=== PATIENT | male | born 1955 | race Caucasian/White ===

== ENCOUNTER → 2021-09-16 11:27 | Outpatient (CLI) | payer MEDICARE, SELFPAY ==
--- NOTE | ~2021-09-16 | US_ITS ---
EXAMINATION: US soft tissue head and neck DATE: 09/16/2021 11:47 INDICATION: Localized swelling, mass or lump at the right neck. TECHNIQUE: Multiple grayscale and Doppler ultrasound images of the region of concern at the right nec k were obtained. COMPARISON: None FINDINGS: There is a 3.7 x 2.2 x 3.1 cm complex predominantly solid hypoechoic mass at the region of concern. T here is an anechoic cystic region along one side of the mass. Internal vascular flow is evident withi n the solid component of the mass on color Doppler. 2 passes located along the right common carotid a rtery and internal jugular vein suggesting an enlarged lymph node. There are few additional smaller n ormal sized right internal jugular chain lymph nodes measuring up to 7 mm in maximal short axis diame ter. IMPRESSION: 1. 3.7 x 2.2 x 3.1 cm complex predominantly solid mass along the right internal jugular chain suspici ous for metastatic disease. Recommend ultrasound-guided core needle biopsy. The partially cystic natu re of the mass in the history of prior smoking raises concern for a head and neck squamous cell carci noma and would also recommend further evaluation with contrast-enhanced CT of the neck. Reviewed, dictated and finalized at location [facility]. IMPRESSION: 1. 3.7 x 2.2 x 3.1 cm complex predominantly solid mass along the right internal jugular chain suspicious for metastatic disease. Recommend ultrasound-guided c ore needle biopsy. The partially cystic nature of the mass in the history of pr ior smoking raises concern for a head and neck squamous cell carcinoma and woul d also recommend further evaluation with contrast-enhanced CT of the neck.
== END ==
PROVIDERS: PCP Family Medicine Adolescent Medicine; Visit Provider Physician Assistant
DX: R22.1 Localized swelling, mass and lump, neck (principal)
CPT/HCPCS: 76536

== ENCOUNTER → 2021-09-19 12:56 | Outpatient (CLI) | payer MEDICARE, SELFPAY ==
--- NOTE | ~2021-09-19 | US_ITS ---
US scrotum doppler INDICATION: Right testicular swelling TECHNIQUE: Testicular sonogram utilizing grayscale and color Doppler FINDINGS: The testes are normal in size and appearance. No focal lesions are seen. The right testes measures 5.4 x 2.5 x 3.7 cm centimeters, and the left testis measures 5 x 2.1 x 2.8 cm cm. There is a large septated right epididymal cyst measuring 8.6 x 4.2 x 6.5 cm. There is a left epididymal cyst m easuring 1.4 x 1.3 x 0.6 cm. There is no varicocele or hydrocele. IMPRESSION: 1. Bilateral epididymal cysts, largest being septated in the right epididymis measuring 8.6 cm maxim um dimension. Reviewed, dictated and finalized at location A. IMPRESSION: 1. Bilateral epididymal cysts, largest being septated in the right epididymis measuring 8.6 cm maximum dimension.
== END ==
PROVIDERS: PCP Family Medicine Adolescent Medicine; Visit Provider Physician Assistant
DX: N50.89 Other specified disorders of the male genital organs (principal); N50.3 Cyst of epididymis
CPT/HCPCS: 76870; 93976

== ENCOUNTER 2021-09-26 12:34 | Outpatient (CLI) | payer MEDICARE, SELFPAY ==
--- NOTE | ~2021-09-26 | CT_ITS ---
EXAMINATION: CT soft tissue neck wo con DATE: 09/26/2021 13:06 INDICATION: Right neck mass. TECHNIQUE: Computed tomography (CT) of the neck was performed without intravenous contrast. Automated exposure control and iterative reconstruction technique were employed. The dose-length product was 4 15.30 mGy-cm. COMPARISON: Ultrasound 09/16/2021 FINDINGS: There is mild emphysema. There is a 3.3 x 2.3 cm high right internal jugular chain lymph no de. There is plate and screw fixation of some of the facial bones bilaterally. There is severe cervic al spondylosis. IMPRESSION: 1. Enlarged high right internal jugular chain lymph node suspicious for metastatic squamous cell carc inoma or lymphoma. Correlate with results from today's biopsy. Reviewed, dictated and finalized at location A. IMPRESSION: 1. Enlarged high right internal jugular chain lymph node suspicious for metasta tic squamous cell carcinoma or lymphoma. Correlate with results from today's bi opsy.
--- NOTE | ~2021-09-26 | US_ITS ---
EXAMINATION: US biopsy st neck thorax DATE: 09/26/2021 13:50 INDICATION: Right neck mass. TECHNIQUE: The procedure including the risks, benefits, and alternatives was discussed with the patie nt. Risks discussed included bleeding and infection. The patient understood the risks and agreed to p roceed. The skin overlying the right neck was prepped and draped in usual sterile fashion. Anestheti c was administered with 1% lidocaine subcutaneously. An 18 gauge core biopsy needle was then used to obtain 6 core biopsy specimens under continuous sonographic guidance. The entry site was cleaned and dressed. There were no immediate complications. FINDINGS: Ultrasound images demonstrate the needle in a 3.4 x 3.3 x 1.9 cm high right internal jugula r chain lymph node. IMPRESSION: 1. Ultrasound-guided core needle biopsy of an enlarged high right internal jugular chain lymph node. Reviewed, dictated and finalized at location A. IMPRESSION: 1. Ultrasound-guided core needle biopsy of an enlarged high right internal jugu lar chain lymph node.
== END 2021-09-26 12:35 | disposition home or self-care (01) ==
PROVIDERS: PCP Family Medicine Adolescent Medicine; Visit Provider Physician Assistant
DX: C80.1 Malignant (primary) neoplasm, unspecified (principal); C77.0 Secondary and unspecified malignant neoplasm of lymph nodes of head, face and neck
CPT/HCPCS: 20206; 70490; 76942; 88184; 88185; 88305; 88342

== ENCOUNTER 2021-11-03 08:41 | Emergency (ER) | payer MEDICARE, SELFPAY ==
--- NOTE | ~2021-11-03 | CT_ITS ---
EXAMINATION: CTA LE RT DATE: 11/03/2021 10:56 INDICATION: Pain and absent pulses in the right lower leg. TECHNIQUE: Computed tomographic angiography (CTA) of the abdominal, pelvis, and both lower extremitie s was performed with 150 mL Omnipaque 350 intravenous contrast. Automated exposure control and iterat bogdan reconstruction technique were employed. The dose-length product was 860.63 mGy-cm. COMPARISON: None. FINDINGS: ABDOMINAL AORTA AND ITS BRANCHES: There is calcified atherosclerosis of the normal caliber abdominal aorta and many of the other arteri es. Moderate (50-70%) stenosis at the origin of the celiac axis. No significant stenosis of the super ior mesenteric, inferior mesenteric or bilateral renal arteries. 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 PELVIC VASCULATURE: Multifocal mild (<50%) stenosis along the bilateral common iliac arteries. Mild and moderate stenosis along the left external iliac artery. Moderate and severe (>70%) stenosis along the bilateral statistics intern al iliac arteries. There is a 6.5 cm segmental occlusion of the right external iliac artery with taryn ateral resupply via the right superficial circumflex iliac and inferior epigastric arteries. RIGHT LOWER EXTREMITY: Mild stenosis along the right common femoral artery. Mild stenosis at the proximal profunda (deep) fe moral artery. Multifocal moderate to severe stenosis along the right superficial femoral artery. Ther e is a 4.5 cm segmental occlusion at the junction of the femoral and proximal popliteal arteries with the supplied via collaterals. Mild stenosis along the more distal popliteal artery. The right anteri or cerebral artery is atretic and occludes 19 cm below level of the knee joint line. Mild to moderate multifocal stenosis along the tibioperoneal trunk. There is occlusion near the origin of the right p osterior tibial artery. Mild stenosis along the right peroneal artery with runoff below the ankle. Th ere is some faint contrast seen in the cord as in the atelectatic distal right vertebral artery. Ther e is supplied by collaterals a few centimeters above level of the ankle. LEFT LOWER EXTREMITY: Moderate stenosis on the left common femoral artery. Mild stenosis at the proximal profunda (deep) fe moral artery. And multifocal mild stenosis on the left femoral artery. Moderate stenosis at the junct ion of the femoral and proximal popliteal arteries. Additional mild stenosis at the mid popliteal art faina. The mid to distal left anterior tibial artery is atretic with faintly discernible contrast which extend below the ankle to supply the dorsalis pedis artery. Mild stenosis along the tibioperoneal tr unk. No significant stenosis on the left peroneal artery with runoff below the ankle. The posterior t ibial artery is atretic with the additional contrast was seen for a short distance proximally before occluding. There is antegrade. Faint contrast where it is seen beginning near the level of the ankle via response from the peroneal artery ADDITIONAL FINDINGS: Mild lingular atelectasis. Heart size is normal. No pericardial or pleural effusion. Small sliding-ty pe hiatal hernia. Liver, gallbladder, spleen, pancreas, bilateral adrenal glands and kidneys are norm al. Moderate scattered colonic diverticulosis without adjacent inflammatory change to suggest diverti culitis. Small bowel and appendix are normal. Mild prostatomegaly. Bilateral small fat-containing ing uinal hernias. No free intraperitoneal gas or fluid. No pathologically enlarged abdominal, pelvic or inguinal lymphadenopathy. Mild to moderate lumbar and lower thoracic spondylosis. IMPRESSION: 1. Extensive atherosclerotic disease involving the abdominal aorta and its main branches and extendi ng throughout both lower extremities. Segmental occlusions are seen in the right external iliac arter y at the junction
[2021-11-03 09:00] VITALS: BP 146/88; PULSE 65; RESP 18; TEMP 36.8; O2SAT 98
--- NOTE | 2021-11-03 09:28 | ED.GENADULT ---
HPI - General Adult General Chief complaint: Wound/Laceration Stated complaint: int RLE pain/numbness since july 2020 Time Seen by Provider: 11/03/21 09:08 History of Present Illness HPI narrative: 66-year-old male presents emergency room states he woke up with numbness and pain to his right lower extremity essentially from his knee down to his foot. He states his right lower extremity also feels cold. Patient does have a history of atherosclerosis and was put on a statin but could not tolerate and stopped taking them. He was a prior smoker but he quit smoking in April of this year. 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 He had a history of some low back issues and sciatica but not having those issues at this time. Related Data Home Medications Medication Instructions Recorded Confirmed No Home Medications 10/17/21 10/17/21 Allergies Allergy/AdvReac Type Severity Reaction Status Date / Time No Known Allergies Allergy Verified 11/03/21 09:30 Review of Systems Review of Systems: CONSTITUTIONAL: Denies fever, chills, or sweats. EYES: Denies visual changes, redness, or discharge. ENT: Denies rhinorrhea, congestion, sore throat, or otalgia. CARDIOVASCULAR: Denies chest pain, palpitations, or edema. RESPIRATORY: Denies cough or dyspnea. GASTROINTESTINAL: Denies abdominal pain, nausea, vomiting, or diarrhea. GENITOURINARY: Denies dysuria or hematuria. SKIN: Denies rash or itching. MUSCULOSKELETAL: Pain to the right leg from the knee down to the foot and toes. Denies any back pain at this time. NEUROLOGIC: Denies headache, numbness, or weakness. PSYCHIATRIC: Denies anxiety or depression. [facility] Past Medical History Medical History Hypercholesterolemia Sciatica Squamous cell cancer of hypopharynx Surgical History Surgical History History of facial surgery Family History Family History Father Heart disease Parkinson disease Mother Leukemia Pacemaker Diabetes mellitus Heart disease Grandparent Heart disease Ovarian cancer Cerebrovascular accident Social History Social History Years smoked: 50 Smoking status: Former smoker Second hand tobacco smoke exposure: No Smoking end date: 04/27/21 Alcohol intake: current Drinks per week: 18 Substance use: never Substance use type: does not use Gender identity (if verbalized by the patient): Male Sexual Orientation (if Verbalized by the Patient): Straight or Heterosexual Spiritual care concerns: No Agree to blood products: Yes Exam Narrative: APPEARANCE: Well appearing, no pain or distress, well-nourished. Head normocephalic and atraumatic. EYES: PERRLA/EOMI, conjunctivae very clear. NOSE: Normal with no drainage EARS:TMS clear Marcela Booth, with good light reflex. THROAT: Pharynx clear, no exudate. NECK: Supple. Noted to have a mass to the right anterior portion of his neck. RESPIRATORY: Airway patent, respirations nonlabored. Clear to auscultation bilaterally, no rales, rhonchi, wheezing. CARDIOVASCULAR: Regular rate and rhythm without murmurs, rubs, or gallops. ABDOMINAL: Soft, nontender, nondistended, no hepatosplenomegaly Musculoskeletal: Moves all extremities. Strength/ROM intact, No edema, No calf tenderness. His right lower extremity is cool to touch from the knee down to the toes. He had decreased capillary refill to his toes. Unable to palpate a dorsalis pedis posterior tibial pulse on the right. Also unable to hear any Doppler pulses. NEURO: Alert. Cranial nerves II through XII intact. Normal gait. Good coordination. Nonfocal examination. SKIN:: Warm, dry. Normal Color PSYCHIATRIC: Normal affect/mood, normal interaction Course Vital Signs
[2021-11-03 09:46] LABS: Basophils Percent Auto 0.4 % (0.2-1.2); Eosinophils Absolute Auto 0.1 K/mm3 (0-0.3); Eosinophils Percent Auto 1.5 % (0-4.4); Hematocrit 42.1 % (42.0-52.0); Immature Granulocyte Absolute 0.01 K/mm3 (0.00-0.031); Immature Granulocyte Percent A 0.1 % (0-0.5); Lymphocytes Absolute Auto 1.93 K/mm3 (0.9-3.2); Lymphocytes Percent Auto 26.6 % (18.3-44.2); Mean Corpuscular HGB Conc 33.3 g/dl (32-36); Mean Corpuscular Volume 93.3 fl (80-100); Mean Platelet Volume 10.5 fl (7.4-10.4); Monocytes Absolute Auto 0.9 K/mm3 (0.1-0.6); Monocytes Percent Auto 12.3 % (2.6-8.5); Neutrophils Absolute Auto 4.3 K/mm3 (1.3-6.7); Neutrophils Percent Auto 59.1 % (45.5-73.1); Platelet Count Result 183 k/mm3 (150-375); Red Blood Count 4.51 M/mm3 (4.6-6.20); Red Cell Distribution Width 13.7 % (11.5-14.5); White Blood Count 7.3 K/mm3 (4.5-10.0)
[2021-11-03 09:56] LABS: Prothrombin Time 13.1 Seconds (11.1-14.7)
[2021-11-03 09:57] LABS: Alanine Aminotransferase 15 U/L (6-50); Albumin Level 4.9 g/dL (3.5-5.1); Alkaline Phosphatase 60 U/L (38-126); Anion Gap 7 mmol/L (8-16); Aspartate Amino Transferase 37 U/L (17-59); Bilirubin,Total 1.2 mg/dL (0.2-1.3); Blood Urea Nitrogen 13 mg/dL (9-20); Calcium 9.1 mg/dL (8.4-10.2); Carbon Dioxide 27 mmol/L (22-30); Chloride 105 mmol/L (98-107); Estimated CRCL calculation 83 ml/min; Estimated Glomerular Filt Rate > 60; Glucose 113 mg/dL (65-110); Partial Thromboplastin Time 29.4 SECONDS (22.3-36.8); Potassium 4.2 mmol/L (3.4-5.0); Sodium 139 mmol/L (137-145)
[2021-11-03 11:02] VITALS: BP 142/67; PULSE 70; RESP 18; O2SAT 98
[2021-11-03 13:23] VITALS: BP 160/83; PULSE 68; RESP 18; O2SAT 98
== END 2021-11-03 13:25 | disposition home or self-care (01) ==
PROVIDERS: Emergency Provider Emergency Medicine; PCP Family Medicine Adolescent Medicine
DX: I70.223 Atherosclerosis of native arteries of extremities with rest pain, bilateral legs (principal); I70.0 Atherosclerosis of aorta; C13.9 Malignant neoplasm of hypopharynx, unspecified; E78.00 Pure hypercholesterolemia, unspecified; Z87.891 Personal history of nicotine dependence
CPT/HCPCS: 36415; 73706; 80053; 85025; 85610; 85730; 99284; Q9967

== ENCOUNTER 2022-06-19 11:00 | Outpatient (RCR) | payer MEDICARE, SELFPAY ==
--- NOTE | 2022-04-10 15:54 | PTOPEVAL1 ---
Assessment and note entered by Ngoc Castro, PT Evaluation Information Assessment Status Evaluation Diagnosis lymphedema of head and neck Onset Feb 2022 Subjective Information no swelling after surgery, onset few weeks ago after radiation; since surgeries and treatment, have regained his endurance and activity level to about normal; Reported Pain Level Pain Score Self Report Additional Pain Score Comments pain in throat--sore, 2-3/10; mostly on the R side of throat/neck; depends on type of food he eats; Assessment PT Clinical Summary Alex has the diagnosis of lymphedema of head and neck, s/p cancer removal of R neck and tonsils, with 31 radiation treatments. He reports onset of swelling about 3 weeks ago. With the evaluation, he has good motion of his neck and mouth and does not report any issues with swallowing, other than throat sore, sometimes more when eat harder foods. There is visible edema over anterior neck and to the R below his scar, with adhesions of scar. Skilled PT services are indicated for lymphedema treatment--manual lymph drainage, manual therapy over scar, education to pt for self manual lymph drainage, appropriate compression garment, home pump, skin care. Plan of Care Interventions Intermittent Compression,Manual Lymph Drainage, Manual Therapy,Patient/Caregiver Education PT Services Indicated Yes Treatment Frequency and 0-2x/wk for 6 weeks, due to availability of the Duration therapist, treatment may not begin for few weeks These treatments will address the objective and functional deficits as defined above. The patient will be advanced safely and appropriately in order for the patient to progress towards his/her prior level of function. Additional exercises will be introduced and as well as a comprehensive home exercise program upon discharge, if needed, ?to ensure carryover of functional gains achieved in the clinic. This treatment plan has been reviewed and agreement upon by the patient.
--- NOTE | 2022-05-22 15:09 | PTOPPROG ---
Assessment and note entered by Ngoc Castro, PT, CLT Evaluation Information Assessment Status Progress Diagnosis lymphedema of head and neck Onset Feb 2022 Subjective Information Alex reports: has not really tried the compression garment, not quite figured it out yet; has been doing the self massage; does not want to try the home pump--use the garment and see how that does; no problems with sore throat or eating; does have some dryness of his mouth in the morning; is doing his neck stretches at home, no pain but feels tight in his neck; Education with pt: use of humidifier in his bed room with sleeping and use of thick coat of vaseline over lips; applied and adjusted the Solaris swell spot chin pad; educated pt on don/ doffing, he was able to perform, looking into the mirror to tighten the straps; good fit and support to his chin; discussed increase wearing time as able--few hours in the evening/ during day and if can tolerate--sleep with it on; also discussed sleeping on wedge cushion to elevate his head; Assessment PT Clinical Summary Alex has received a total of 8 PT sessions. Compared to the initial evaluation: improved with no longer has a sore throat; had been educated on compression garment--just received and not started using yet; education for self lymph massage drainage and exercises; fibrotic tissue at anterior neck has decreased in measurement: vertical by 3.5 cm and horizontal by 3 cm; neck circumferential measurements have decreased with 1 and other 2 are the same. Goals were partially achieved. Continue PT to further reduce the fibrotic tissue over anterior neck and lateral scar, assess how he does with the home compression garment. Plan of Care Interventions Intermittent Compression,Manual Lymph Drainage, Therapeutic Activities,Therapeutic Exercise PT Services Indicated Yes Treatment Frequency and 1x/wk for 4 weeks Duration These treatments will address the objective and functional deficits as defined above. The patient will be advanced safely and appropriately in order for the patient to progress towards his/her prior level of function. Additional exercises will be introduced and as well as a comprehensive home exercise program upon discharge, if needed, ?to ensure carryover of functional gains achieved in the clinic. This treatment plan has been
--- NOTE | 2022-06-19 11:30 | PTOPDC ---
Assessment and note entered by Ngoc Castro, PT, CLT Evaluation Information Assessment Status Discharge Diagnosis lymphedema of head and neck Onset Feb 2022 Subjective Information Alex reports: is wearing the compression head garment for 2 hours and the bump on his neck is totally gone, have not been sleeping with it on; is sleeping with his head elevated; been doing the lymph massage; no problems with swallowing and eating; scar is looser, does not pull as much with turning my head; therapy has really helped; ready for finishing therapy; Reported Pain Level Pain Score 0: Self Report Assessment PT Clinical Summary Alex has received 12 PT sessions. Compared to the last reevaluation: decreased fibrotic tissue over anterior neck and R lateral neck scar; cervical rotation to R and L is 60', with slight pull with rotation to L; circumferential measurements of neck: 1 same, 1 increased .5 cm and 1 increased 1 cm. Education completed for self care and pt is using the compression garment. Goals were partially met. Discharge PT services. Plan of Care PT Services Indicated No
== END 2022-06-20 09:46 | disposition home or self-care (01) ==
LOC: ANHPT 11:00
PROVIDERS: Visit Provider Radiology Radiation Oncology
DX: I89.0 Lymphedema, not elsewhere classified (principal)
CPT/HCPCS: 97110; 97140; 97161

== ENCOUNTER 2022-10-27 20:48 | Emergency (ER) | payer MEDICARE, SELFPAY ==
--- NOTE | ~2022-10-27 | CT_ITS ---
EXAMINATION: CT brain wo con DATE: 10/27/2022 21:32 INDICATION: Left arm numbness. Lightheadedness. TECHNIQUE: Computed tomography (CT) of the head was performed without intravenous contrast. The mA wa s adjusted according to patient size. Iterative reconstruction technique was employed. Exam dose: 60 5.33 mGy-cm total exam DLP. COMPARISON: None FINDINGS: Bilateral carotid siphon internal carotid artery calcifications. Bilateral vertebral artery and basilar artery calcification. There is nonspecific diminished attenuation of the cerebral white matter, likely due to chronic small vessel ischemic changes. No intracranial mass lesion or hemorrhage or cerebrovascular accident is detected. No midline shift o r mass effect. No subdural or epidural hematoma. Plate and screws are noted in the right facial bones. No recent skull fracture or bone destruction. The mastoid air cells and included paranasal sinuses are well-developed and aerated. IMPRESSION: Cerebral atherosclerosis and chronic small vessel ischemic changes of the cerebral white matter No acute intracranial finding Reviewed, dictated and finalized at [facility]. Reviewed, dictated and finalized at location A.
[2022-10-27 20:56] VITALS: BP 177/66; PULSE 86; RESP 16; TEMP 36.7; O2SAT 100
[2022-10-27 23:11] VITALS: BP 136/78; PULSE 82; RESP 18; O2SAT 100
--- NOTE | 2022-10-28 00:29 | ED.GENADULT ---
HPI - General Adult General Chief complaint: Dizziness Stated complaint: L arm numbness, dizziness Time Seen by Provider: 10/27/22 23:31 History of Present Illness HPI narrative: this is a 67-year-old male presenting ED with chief complaint of lightheadedness. Patient states he has been out working in the heat for the last 2 days. Earlier today while he was working he has developed a brief episode of lightheadedness. It resolved after he sat down and rested. Then several hours later he developed some paresthesias in his left arm. Those also resolved. Patient has a history of neuropathy in his feet but has never experienced that his hands before. He denies any neurologic symptoms such as double vision, dysarthria dysphagia dystaxia or weakness. Patient is currently asymptomatic and would like to go home. Related Data Home Medications Medication Instructions Recorded Confirmed aspirin 81 mg tablet,delayed 81 mg PO DAILY 12/16/21 03/17/22 release Allergies Allergy/AdvReac Type Severity Reaction Status Date / Time No Known Allergies Allergy Verified 03/17/22 09:32 [facility] Past Medical History Medical History Hypercholesterolemia Sciatica Surgical History Surgical History History of facial surgery Family History Family History Father Heart disease Parkinson disease Mother Leukemia Pacemaker Diabetes mellitus Heart disease Grandparent Heart disease Ovarian cancer Cerebrovascular accident Social History Social History Smoking packs per day: 1.5 Smoking cigarettes per day: 30.0 Years smoked: 40 Smoking pack-years: 60.00 Smoking status: Former smoker Tobacco type: cigarettes Second hand tobacco smoke exposure: No Smoking end date: 04/27/21 Alcohol intake: current Drinks per week: 18 Substance use: never Substance use type: does not use Living arrangements: with family Occupation/Education: retired Gender identity (if verbalized by the patient): Male Sexual Orientation (if Verbalized by the Patient): Straight or Heterosexual Spiritual care concerns: No Agree to blood products: Yes Exam Narrative: APPEARANCE: No apparent distress. Head: atraumatic. EYES: EOMI, NOSE: Atraumatic NECK: Trachea midline RESPIRATORY: No increased rate of breathing , clear to auscultation CARDIOVASCULAR: RRR, ABDOMINAL: Non-distended MUSCULOSKELETAl: No obvious deformities NEURO: Alert. Cranial nerves 2-12 grossly intact. Sensation light touch, motor function cerebellar function intact for 4 extremities. Gait exam was normal. Focal exam left upper extremity revealed grossly normal neurologic exam SKIN:: Warm, dry. Normal color PSYCHIATRIC: Normal affect Course Vital Signs Vital signs: Vital Signs Temperature 98.0 F 10/27/22 20:56 Pulse Rate 86 10/27/22 20:56 Respiratory Rate 16 10/27/22 20:56 Blood Pressure 177/66 H 10/27/22 20:56 Pulse Oximetry 100 10/27/22 20:56 Oxygen Delivery Room Air 10/27/22 20:56 Temperature 98.0 F 10/27/22 20:56 Pulse Rate 82 10/27/22 23:11 Respiratory Rate 18 10/27/22 23:11 Blood Pressure 136/78 10/27/22 23:11 Pulse Oximetry 100 10/27/22 23:11 Oxygen Delivery Room Air 10/27/22 20:56 Medical Decision Making [facility] Narrative Medical decision making narrative: -Presentation: 67-year-old male presenting after short episode of lightheadedness and an episode of left hand paresthesias that were several hours apart. Patient is currently asymptomatic and does not want to be in the emergency department. he and his asked that we get basic lab work they will check the results online. -DDX includes but is not limited to: Dehydration, anemia, stroke -Co-morbidities complicat
[2022-10-28 00:34] VITALS: BP 161/58; PULSE 88; O2SAT 100
== END 2022-10-28 00:43 | disposition home or self-care (01) ==
PROVIDERS: Emergency Provider Emergency Medicine; PCP Family Medicine Adolescent Medicine
DX: R42 Dizziness and giddiness (principal); E78.00 Pure hypercholesterolemia, unspecified; Z87.891 Personal history of nicotine dependence; I67.2 Cerebral atherosclerosis
CPT/HCPCS: 70450; 99284

== ENCOUNTER 2022-10-31 11:04 | Observation (INO) | payer MEDICARE, SELFPAY ==
[2022-10-31] VITALS (7 sets, daily range): BP systolic 133–169; BP diastolic 56–79; PULSE 63–88; RESP 13–18; TEMP 36.2–37.5; O2SAT 99–100; BMI 22.6
--- NOTE | ~2022-10-31 | XR_ITS ---
EXAMINATION: XR chest 1V portable DATE: 10/31/2022 12:59 INDICATION: Anemia. TECHNIQUE: A single frontal view of the chest was obtained on 2 radiographs. COMPARISON: None. FINDINGS: There is mild atelectasis in left lower lung zone. No pleural effusion or pneumothorax. The heart size is normal. There are surgical clips in right neck. IMPRESSION: 1. Mild atelectasis in left lower lung zone. Reviewed, dictated and finalized at location A.
--- NOTE | 2022-10-31 12:22 | ECG_ITS ---
Measurements Intervals [place] Rate: 73 P: 46 SD: 148 QRS: 29 QRSD: 96 T: 45 QT: 391 QTc: 432 Interpretive Statements SINUS RHYTHM NORMAL ECG NO PREVIOUS ECG AVAILABLE FOR COMPARISON Electronically Signed On 10-31-2022 12:59:57 CDT by Young Marie D.O.
--- NOTE | 2022-10-31 12:25 | ED.RECABL ---
HPI - Recheck/Abnormal Lab/Rx General Chief Complaint: Recheck/Abnormal Lab/Rx Stated Complaint: Low H&h Time Seen by Provider: 10/31/22 11:50 Source: patient and family Mode of arrival: ambulatory Limitations: no limitations History of Present Illness HPI narrative: Patient referred to our emergency room today because of hemoglobin of 8.2 on routine blood work-up yesterday. Currently patient is asymptomatic denying any black stool, nausea, vomiting, abdominal pain. Patient on aspirin and Plavix. No history of GI bleed. Patient's status post vascular surgery, iliac stent 2 weeks ago at [facility]. Patient came to our emergency room 3 days ago with lightheadedness and was discharged home with a diagnosis of lightheadedness, no blood work-up was done at that time. Patient never had colonoscopy before. Related Data Home Medications Medication Instructions Recorded Confirmed aspirin 81 mg tablet,delayed 81 mg PO DAILY 12/16/21 10/31/22 release atorvastatin 20 mg tablet 20 mg PO HS 10/31/22 10/31/22 clopidogrel 75 mg tablet 75 mg PO DAILY 10/31/22 10/31/22 multivit with minerals-iron 18 1 tablet PO DAILY 10/31/22 10/31/22 mg-folic ac 400 mcg-vit K 25 mcg tablet (Adults Multivitamin) Allergies Allergy/AdvReac Type Severity Reaction Status Date / Time No Known Allergies Allergy Verified 11/01/22 07:23 Review of Systems Review of Systems: All systems reviewed & are unremarkable except as noted in HPI and below PMFSH Past Medical History Medical History (Updated 11/01/22 @ 00:24 by Samantha Freedman NP) Heart murmur History of oral cancer History of tobacco abuse Hypercholesterolemia Peripheral vascular disease Sciatica Surgical History Surgical History (Updated 10/31/22 @ 20:07 by Samantha Freedman NP) History of biopsy Tongue biopsy History of facial surgery History of intravascular stent placement S/P tonsillectomy and adenoidectomy Family History Family History Father Heart disease Parkinson disease Mother Leukemia Pacemaker Diabetes mellitus Heart disease Grandparent Heart disease Ovarian cancer Cerebrovascular accident Social History Social History (Updated 11/01/22 @ 00:22 by Samantha Freedman NP) Social History: 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 The patient continues to smoke every day. His Christen Ribeiro is a durable power of machine fitter for healthcare. Code status full code Smoking packs per day: 1.5 Smoking cigarettes per day: 30.0 Years smoked: 45 Smoking pack-years: 67.50 Smoking status: Current every day smoker Tobacco type: cigarettes Second hand tobacco smoke exposure: No Smoking end date: 04/27/21 Alcohol intake: current Drinks per week: 16 Substance use: never Substance use type: does not use Lack of Transportation: No Lack of Food: Never True Current Housing: I Have Housing Concerned About Future Housing: No Difficulty Paying Gas/Electric Bills: No Difficulty Paying for Meds: No Currently Unemployed: No Education: Decline to Answer Difficulty w/ Childcare or Family Care: No Living arrangements: with family Occupation/Education: retired Gender identity (if verbalized by the patient): Male Sexual Orientation (if Verbalized by the Patient): Straight or Heterosexual Spiritual care concerns: No Agree to blood products: Yes Exam Narrative: General appearance: Well-developed, well-nourished Skin: Normal color Head: Normocephalic, nontraumatic Eyes: Clear conjunctiva ENT: Oropharynx normal, ears normal, nose normal Neck: Supple, nontender Chest and respiratory: Airway patent, no respiratory distress, no accessory muscle use Heart: Regular rate/rhythm Abdomen: Soft, nontender, no organomegaly, quiet bowel sounds, rectal exam showed black stool, guaiac positive Vascular: Normal peripheral pulses, normal capillary ref
[2022-10-31 12:53] LABS: Basophils Percent Auto 0.6 % (0.2-1.2); Eosinophils Absolute Auto 0.1 K/mm3 (0-0.3); Eosinophils Percent Auto 0.7 % (0-4.4); Hematocrit 24.5 % (42.0-52.0); Hemoglobin 7.8 g/dL (14.0-18.0); Immature Granulocyte Absolute 0.02 K/mm3 (0.00-0.031); Immature Granulocyte Percent A 0.3 % (0-0.5); Lymphocytes Absolute Auto 0.78 K/mm3 (0.9-3.2); Lymphocytes Percent Auto 11.6 % (18.3-44.2); Mean Corpuscular HGB Conc 31.8 g/dl (32-36); Mean Corpuscular Hemoglobin 32.1 pg (26-34); Mean Corpuscular Volume 100.8 fl (80-100); Mean Platelet Volume 9.2 fl (7.4-10.4); Monocytes Absolute Auto 0.6 K/mm3 (0.1-0.6); Monocytes Percent Auto 8.7 % (2.6-8.5); Neutrophils Absolute Auto 5.3 K/mm3 (1.3-6.7); Neutrophils Percent Auto 78.1 % (45.5-73.1); Platelet Count Result 359 k/mm3 (150-375); Red Blood Count 2.43 M/mm3 (4.6-6.20); Red Cell Distribution Width 16.2 % (11.5-14.5); White Blood Count 6.8 K/mm3 (4.5-10.0)
[2022-10-31 12:54] LABS: Appearance Urine Clear (Clear); Bilirubin Urine Negative (Negative); Blood Urine Negative (Negative); Color Urine Yellow (Yellow); Glucose Urine UA Negative (Negative); Ketones Urine Negative (Negative); Leukocyte Esterase Ur Negative LEU/UL (Negative); Nitrate Urine Negative (Negative); Protein Urine Negative (Negative); Specific Grav Ur 1.002 (1.001-1.035); Urobilinogen Urine 0.2 mg/dL (<2.0); pH Urine 5.5 (5.0-9.0)
[2022-10-31 13:05] LABS: Alanine Aminotransferase 14 U/L (6-50); Albumin Level 4.3 g/dL (3.5-5.1); Alkaline Phosphatase 68 U/L (38-126); Anion Gap 9 mmol/L (8-16); Aspartate Amino Transferase 31 U/L (17-59); Bilirubin,Total 0.8 mg/dL (0.2-1.3); Blood Urea Nitrogen 10 mg/dL (9-20); Calcium 8.8 mg/dL (8.4-10.2); Carbon Dioxide 26 mmol/L (22-30); Chloride 100 mmol/L (98-107); Estimated CRCL calculation 77 ml/min; Estimated Glomerular Filt Rate > 60; Glucose 101 mg/dL (65-110); Potassium 3.9 mmol/L (3.4-5.0); Sodium 135 mmol/L (137-145)
[2022-10-31 13:11] LABS: Prothrombin Time 13.8 Seconds (11.1-14.7)
[2022-10-31 13:12] LABS: Partial Thromboplastin Time 30.4 SECONDS (22.3-36.8)
[2022-10-31 13:28] LABS: Add Urine Microscopic? NO
[2022-10-31] MEDS: PANTOPRAZOLE SODIUM IV 40 MG VIAL IV PUSH (13:33)
[2022-10-31 13:46] LABS: Hematocrit 23.3 % (42.0-52.0); Hemoglobin 7.5 g/dL (14.0-18.0)
--- NOTE | 2022-10-31 14:42 | ADMGEN ---
This patient, Andrzej Stringer II, was admitted to [facility] Surg Room 307-02. Patient/family oriented to hospital policies and general routines including ID bracelet, bed and alarms, visiting hours, pain management, procedures, bathroom and other care routines, personal items, smoking policy, room service/diet, and visiting hours. Information on how to activate the Rapid Response Team has been discussed. Patient/Family are encouraged to report perceived risks to care and to ask questions if they do not understand what they are told or what they should do.
--- NOTE | 2022-10-31 15:19 | PM.IMHP ---
H&P: HPI History of Present Illness Date/Time: 10/31/22 15:19 Chief Complaint: Low H&H Narrative: This is a 67-year-old male patient who is referred to the emergency room for low H&H. Patient's hemoglobin was reportedly 8.21 routine workup yesterday. The patient denied any dark stools any nausea vomiting or diarrhea. The patient is on Plavix and aspirin. He has no prior history of any GI bleed. The patient was seen at [facility] approximately 2 weeks ago and received a peripheral vascular stent. The patient stated that he had not been told that he had any complications from a stent. According to his the patient's preop labs showed that the he had a hemoglobin of over 14. His stated that the patient received plasma during surgery and that his hemoglobin dropped a couple g postoperatively. There were no known complications from the surgery. The patient has had no prior colonoscopies. GI has been consulted. The patient was typed and cross-matched for 2 units packed red blood cells. One has been transfuse already. The patient does not have any complaints of dizziness today or any shortness of breath. The patient was placed on a clear liquid diet. He was started on pantoprazole and ordered for colonoscopy prep. H&H was 8.2 in 24.1 repeat H&H 7.5 and 23.3. MCV is 100.8. The patient is being admitted to observation status on the date of service of 10/31/2022. Review of Systems Review of Systems: All systems reviewed & are unremarkable except as noted in HPI and below Constitutional: Constitutional: Reports as per HPI and Reports no additional constitutional complaints Eyes: Eyes: Reports as per HPI and Reports no additional eye complaints ENT: Reports system reviewed and no additional complaints, except as documented and Reports Normal hearing present Cardiovascular: Cardiovascular: Reports no additional cardiovascular complaints Respiratory: Respiratory: Reports no additional respiratory complaints and Reports no additional respiratory complaints Gastrointestinal: Gastrointestinal: Reports as per HPI and Reports no additional gastrointestinal complaints Musculoskeletal: Musculoskeletal: Reports no additional musculoskeletal complaints Integumentary/Breasts: Skin/Breast: Reports system reviewed and no additional complaints, except as docu and Reports as per HPI Neurologic: Reports system reviewed and no additional complaints, except as documented, Reports as per HPI and Reports Normal hearing present Psychiatric: Psychiatric: Reports no additional psychiatric complaints and Reports as per HPI Endocrine: Endocrine: Reports no additional endocrine complaints Hematologic/Lymphatic: Hematologic/Lymphatic: Reports no additional hematologic/lymphatic complaints Allergic/Immunologic: Allergic/Immunologic: Reports no additional allergic/immunologic complaints [facility] Past Medical History Medical History (Updated 11/01/22 @ 00:24 by Samantha Freedman NP) Heart murmur History of oral cancer History of tobacco abuse Hypercholesterolemia Peripheral vascular disease Sciatica Surgical History Surgical History (Updated 10/31/22 @ 20:07 by Samantha Freedman NP) History of biopsy Tongue biopsy History of facial surgery History of intravascular stent placement S/P tonsillectomy and adenoidectomy Family History Family History Father Heart disease Parkinson disease Mother Leukemia Pacemaker Diabetes mellitus Heart disease Grandparent Heart disease Ovarian cancer Cerebrovascular accident Social History Social History (Updated 11/01/22 @ 00:22 by Samantha Freedman NP) Social History: The patient is retired from being a at. The patient continues to smoke every day. His Christen Ribeiro is a durable power of litigation attorney associate for healthcare. Code status full code Smoking packs per day: 1.5 Smoking cigarettes per day: 30.0 Year
--- NOTE | 2022-10-31 15:23 | WPDGICN ---
Assessment and Plan Assessment and plan (1) Anemia: Qualifiers: Anemia type: unspecified type Qualified Code(s): D64.9 - Anemia, unspecified Code(s): D64.9 - Anemia, unspecified Status: Acute Assessment and Plan: Pain with new anemia. This appears to have developed after his recent vascular stent placement. He now is on Plavix. Stool is confirmed be Hemoccult-positive suggesting GI source. Plan for both colonoscopy an EGD tomorrow after preparation this evening. Will monitor hemoglobin overnight. Place patient on pantoprazole for possible ulcer disease. Alternatively anemia may be a postoperative stay. Will watch and follow hemoglobin occult sleep (2) Occult blood in stools: Code(s): R19.5 - Other fecal abnormalities Status: Acute Assessment and Plan: occult blood noted in stool. Suggesting GI source for anemia. ER suggested is black stools patient's to the just brown stool. Difficult to determine source of occult blood loss this time. Both colonoscopy and EGD EGD will be anticipated. (3) Peripheral vascular disease: Code(s): I73.9 - Peripheral vascular disease, unspecified Status: Acute GI Consult Note Consult date/time: 10/31/22 15:23 Reason for consult: Anemia and occult blood in stool. HPI: Andrzej Stringer II is a 67 year old male I am asked to see at the request of the emergency room. Patient has a history of claudication of the lower extremities. Currently followed in [place]. He underwent vascular stent placement in the iliac arteries 2 weeks ago. He subsequently was maintained on Plavix anticoagulation. Preoperative lab tests were normal. Patient apparently did well postoperatively. However is 2-3 days ago presented [facility] with some lightheadedness. No labs were obtained. Yesterday outpatient laboratory tests reveal a significant decline in hemoglobin to approximately 8. Patient therefore was sent to the emergency room where he was found to have Hemoccult-positive stools described by the emergency room physician is blackish. Patient states that his stools recently have been dark brownish. Patient denies any overt bleeding. He has no significant bruising at the site of his recent surgery. He has no other bruising. Patient denies any blood in his urine no elsewhere. Family history is noncontributory. Patient denies having had previous colonoscopy. Review of Systems Review of Systems: Review of systems noncontributory. [facility] Past Medical History Medical History Hypercholesterolemia Sciatica Surgical History Surgical History History of facial surgery Family History Family History Father Heart disease Parkinson disease Mother Leukemia Pacemaker Diabetes mellitus Heart disease Grandparent Heart disease Ovarian cancer Cerebrovascular accident Social History Social History Smoking packs per day: 1.5 Smoking cigarettes per day: 30.0 Years smoked: 40 Smoking pack-years: 60.00 Smoking status: Former smoker Tobacco type: cigarettes Second hand tobacco smoke exposure: No Smoking end date: 04/27/21 Alcohol intake: current Drinks per week: 16 Substance use: never Substance use type: does not use Lack of Transportation: No Lack of Food: Never True Current Housing: I Have Housing Concerned About Future Housing: No Difficulty Paying Gas/Electric Bills: No Difficulty Paying for Meds: No Currently Unemployed: No Education: Decline to Answer Difficulty w/ Childcare or Family Care: No Living arrangements: with family Occupation/Education: retired Gender identity (if verbalized by the patient): Male Sexual Orientation (if Verbalized by the Patient): Stra
[2022-10-31] MEDS: PEG (High)/E-LYTE SOLN 4,000 ML BTL 4000 ML PO (17:40)
[2022-10-31] MEDS: TUBING, BLOOD PLUM PUMP TUBING 1 EACH XX (17:40)
[2022-10-31] MEDS: SODIUM CHLORIDE 0.9% IV 250 ML 30 ML IV CONT (18:01)
[2022-10-31 23:24] LABS: Hematocrit 27.1 % (42.0-52.0); Hemoglobin 8.8 g/dL (14.0-18.0)
[2022-11-01] MEDS: SODIUM CHLORIDE 0.9% IV 1,000 ML 100 ML IV CONT (00:37)
[2022-11-01 05:56] VITALS: BP 143/69; PULSE 67; RESP 13; TEMP 37.1; O2SAT 99
[2022-11-01 06:31] LABS: Hematocrit 26.4 % (42.0-52.0); Hemoglobin 8.5 g/dL (14.0-18.0)
[2022-11-01 06:45] LABS: Anion Gap 3 mmol/L (8-16); Blood Urea Nitrogen 6 mg/dL (9-20); Calcium 8.6 mg/dL (8.4-10.2); Carbon Dioxide 29 mmol/L (22-30); Chloride 105 mmol/L (98-107); Estimated CRCL calculation 81 ml/min; Estimated Glomerular Filt Rate > 60; Glucose 102 mg/dL (65-110); Magnesium 2.1 mg/dL (1.6-2.3); Potassium 4.1 mmol/L (3.4-5.0); Sodium 137 mmol/L (137-145)
[2022-11-01 07:20] VITALS: BP 174/79; PULSE 72; RESP 20; TEMP 35.9; O2SAT 100
--- NOTE | 2022-11-01 07:29 | WPDANESEPPF ---
Anes - Initial Pre Proc Eval Procedure: Operation Date: 11/01/22 07:30 Proposed Procedures p Esophagogastroduodenoscopy & Colonoscopy - Sandeep Zepeda MD Date/Time: 11/01/22 07:29 Surgeon: Corrina Hicks MD Pre Op Diagnosis: GI Bleed/Anemia Patient Data Age: 67 Gender: M Height: 1.79 m Weight: 72.7 kg Last Vital Signs Temp 37.1 C 11/01/22 05:56 Pulse 67 11/01/22 05:56 Resp 13 11/01/22 05:56 BP 143/69 H 11/01/22 05:56 Pulse Ox 99 11/01/22 05:56 O2 Del Method Room Air 10/31/22 20:00 Allergies Allergy/AdvReac Type Severity Reaction Status Date / Time No Known Allergies Allergy Verified 11/01/22 07:23 Home Medications Medication Instructions Recorded Confirmed Type aspirin 81 mg tablet,delayed 81 mg PO DAILY 12/16/21 10/31/22 History release atorvastatin 20 mg tablet 20 mg PO HS 10/31/22 10/31/22 History clopidogrel 75 mg tablet 75 mg PO DAILY 10/31/22 10/31/22 History multivit with minerals-iron 18 1 tablet PO DAILY 10/31/22 10/31/22 History mg-folic ac 400 mcg-vit K 25 mcg tablet (Adults Multivitamin) Laboratory Tests 10/31/22 10/31/22 10/31/22 12:44 13:31 23:06 WBC 6.8 K/mm3 (4.5-10.0) RBC 2.43 L M/mm3 (4.6-6.20) Hgb 7.8 L D g/dL 7.5 L g/dL 8.8 L g/dL (14.0-18.0) (14.0-18.0) (14.0-18.0) Hct 24.5 L % 23.3 L % 27.1 L % (42.0-52.0) (42.0-52.0) (42.0-52.0) MCV 100.8 H fl (80-100) MCH 32.1 pg (26-34) MCHC 31.8 L g/dl (32-36) RDW 16.2 H % (11.5-14.5) Plt Count 359 D k/mm3 (150-375) MPV 9.2 fl (7.4-10.4) Immature Gran % (Auto) 0.3 % (0-0.5) Neut % (Auto) 78.1 H % (45.5-73.1) Lymph % (Auto) 11.6 L % (18.3-44.2) Cass % (Auto) 8.7 H % (2.6-8.5) Eos % (Auto) 0.7 % (0-4.4) Baso % (Auto) 0.6 % (0.2-1.2) Lymph # (Auto) 0.78 L K/mm3 (0.9-3.2) Cass # (Auto) 0.6 K/mm3 (0.1-0.6) Eos # (Auto) 0.1 K/mm3 (0-0.3) Baso # (Auto) 0.0 K/mm3 (0.0-0.1) Abs Immat Gran (auto) 0.02 K/mm3 (0.00-0.031) Absolute Neuts (auto) 5.3 K/mm3 (1.3-6.7) Absolute Nucleated RBC 0.0 K/mm3 (0.0-0.012) Nucleated RBC % 0.0 % (0.0-0.2) PT 13.8 Seconds (11.1-14.7) INR 1.0 APTT 30.4 SECONDS (22.3-36.8) Sodium 135 L mmol/L (137-145) Potassium 3.9 mmol/L (3.4-5.0) Chloride 100 mmol/L (98-107) Carbon Dioxide 26 mmol/L (22-30) Anion Gap 9 mmol/L (8-16) BUN 10 mg/dL (9-20) Creatinine 0.80 mg/dL (0.7-1.3) Estim Creat Clear Calc 77 ml/min Estimated GFR > 60 (59 - ) Glucose 101 mg/dL (65-110) Calcium 8.8 mg/dL (8.4-10.2) Magnesium Total Bilirubin 0.8 mg/dL (0.2-1.3) AST 31 U/L (17-59) ALT 14 U/L (6-50) Alkaline Phosphatase 68 U/L (38-126) Total Protein 7.0 g/dL (6.3-8.2) Albumin 4.3 g/dL (3.5-5.1) Urine Color Yellow (Yellow) Urine Appearance Clear (Clear) Urine pH 5.5 (5.0-9.0) Ur Specific [place] 1.002 (1.001-1.035) Urine Protein Negative mg/dL (Negative) Urine Glucose (UA) Negative mg/dL (Negative) Urine Ketones Negative mg/dL (Negative) Ur Blood (Man) Negative (Negative) Urine Nitrate Negative (Negative) Urine Bilirubin Negative (Negative) Urine Urobilinogen 0.2 mg/dL (<2.0) Leukocyte Esterase Rfl Negative TITO/UL (Negative) Blood Type AB Positive Antibody Screen Negative Crossmatch See Detail 11/01/22 05:57 WBC RBC Hgb 8.5 L g/dL (14.0-18.0) Hct 26.4 L % (42.0-52.
[2022-11-01] MEDS: LACTATED RINGERS 1,000 ML 150 ML IV CONT (07:40)
[2022-11-01] MEDS: SIMETHICONE ORAL SUSPENSION 20 MG/0.3 ML 30 ML BOTTLE 0.6 ML PO (08:02)
[2022-11-01 08:25] VITALS: BP 85/40; PULSE 77; RESP 16; O2SAT 100
[2022-11-01 08:35] VITALS: BP 113/69; PULSE 70; RESP 19; O2SAT 100
[2022-11-01 08:45] VITALS: BP 107/72; PULSE 71; RESP 12; O2SAT 100
[2022-11-01] MEDS: FAMOTIDINE 20 MG TABLET PO (10:11)
[2022-11-01 11:43] LABS: Mean Corpuscular HGB Conc 31.2 g/dl (32-36); Mean Corpuscular Hemoglobin 32.4 pg (26-34); Mean Corpuscular Volume 103.6 fl (80-100); Mean Platelet Volume 9.9 fl (7.4-10.4); Platelet Count Result 351 k/mm3 (150-375); Red Blood Count 2.75 M/mm3 (4.6-6.20); Red Cell Distribution Width 17.2 % (11.5-14.5)
[2022-11-01 13:02] LABS: Hematocrit 26.4 % (42.0-52.0); Hemoglobin 8.3 g/dL (14.0-18.0); Hemoglobin 8.5 g/dL (14.0-18.0); Mean Corpuscular HGB Conc 32.2 g/dl (32-36); Mean Corpuscular Hemoglobin 31.8 pg (26-34); Mean Corpuscular Volume 98.9 fl (80-100); Mean Platelet Volume 9.2 fl (7.4-10.4); Platelet Count Result 328 k/mm3 (150-375); Red Blood Count 2.67 M/mm3 (4.6-6.20); Red Cell Distribution Width 17.2 % (11.5-14.5); White Blood Count 5.9 K/mm3 (4.5-10.0)
[2022-11-01 14:00] VITALS: BP 139/62; PULSE 76; RESP 16; TEMP 36.8; O2SAT 100
--- NOTE | 2022-11-01 14:01 | PM.DS ---
DS: Admitting Diagnosis Discharge Date 11/01/2022 Admitting Diagnosis low H and H DS: Discharge Diagnosis Discharge Diagnosis (1) GI bleed: Qualifiers: GI bleed type/associated pathology: unspecified gastrointestinal hemorrhage type Qualified Code(s): K92.2 - Gastrointestinal hemorrhage, unspecified Code(s): K92.2 - Gastrointestinal hemorrhage, unspecified Status: Acute Assessment and Plan: H&H every 6 hours. GI has been consulted. Patient was given a unit of packed red blood cells. The patient has been on aspirin and Plavix for his peripheral stent. The patient was tested positive for Hemoccult stool. There is a plan for colonoscopy and EGD tomorrow after prepping this evening. Patient was placed on pantoprazole her probable peptic ulcer disease. The patient has no significant bruising at his stent placement site. (2) Peripheral vascular disease: Code(s): I73.9 - Peripheral vascular disease, unspecified Status: Acute Assessment and Plan: The patient is NPO at this time. The patient's Plavix and aspirin have not been given today. Patient is NPO for procedure tomorrow with EGD and colonoscopy. (3) Prostate cancer: Code(s): C61 - Malignant neoplasm of prostate Status: Acute Assessment and Plan: The patient stated that it is being monitored outpatient. (4) Mixed hyperlipidemia: Code(s): E78.2 - Mixed hyperlipidemia Status: Acute Assessment and Plan: Resume atorvastatin when patient is able to eat again. DS: Summary Hospital Course Reason for hospitalization: Low H&H Narrative: This is a 67-year-old male patient who is referred to the emergency room for low H&H.? Patient's hemoglobin was reportedly 8.21 routine workup yesterday.? The patient denied any dark stools any nausea vomiting or diarrhea.? The patient is on Plavix and aspirin.? He has no prior history of any GI bleed.? The patient was seen at [facility] approximately 2 weeks ago and received a peripheral vascular stent.? The patient stated that he had not been told that he had any complications from a stent.? According to his the patient's preop labs showed that the he had a hemoglobin of over 14.? His stated that the patient received plasma during surgery and that his hemoglobin dropped a couple g postoperatively.? There were no known complications from the surgery.? The patient has had no prior colonoscopies.? GI has been consulted.? The patient was typed and cross-matched for 2 units packed red blood cells.? One has been transfuse already.? The patient does not have any complaints of dizziness today or any shortness of breath.? The patient was placed on a clear liquid diet.? He was started on pantoprazole and ordered for colonoscopy prep.? H&H was 8.2 in 24.1 repeat H&H 7.5 and 23.3.? MCV is 100.8 Hospital Course: patient had EGD and colonoscopy, no acute source of bleeding however 5 polyps with removed, patient to hold plavix until ThursdayNovember 03, patient to contact his vascular surgeon for further recommendation for plavix and as the patient had lower extremity stent placed 2 weeks ago and risk of clogging the stents. patient to follow up with his surgeon, GI and primary care provider as soon as possible, patient is instructed if any symptoms worsen to go to nearest emergency department Time Spent with Patient Time attestation: Total time spent providing and/or coordinating discharge services: Exam Narrative: Patient is comfortable, NAD HEENT: eyes are clear and none icteric LUNGS: Normal respiratory effort ABD: Not distended Lower extremities: no edema SKIN: nonjaundiced Neuro: grossly intact. DS: Data Data Completed and Pending Pending studies at discharge: Pending at discharge 11/01/22 08:26 Surgical [PTH] Routine Labs on day of discharge: Labs from last 24 hours 11/01/22 11/01/22 11/01/22 12:46 12:46 12:46 WBC 5.9
== END 2022-11-01 15:37 | disposition home or self-care (01) ==
LOC: ANHED 12:47 → ANH3MEDSUR 14:56
PROVIDERS: Internal Medicine Gastroenterology; Nurse Practitioner; Admitting Provider Hospitalist; Emergency Provider Emergency Medicine; PCP Family Medicine Adolescent Medicine; Visit Provider Family Medicine
PROC: 0DJ08ZZ Inspection of Upper Intestinal Tract, Via Natural or Artificial Opening Endoscopic (ICD-10-PCS; CPT 43235; principal; 2022-11-01 07:30)
DX: Q27.33 Arteriovenous malformation of digestive system vessel (principal); D12.2 Benign neoplasm of ascending colon; D12.5 Benign neoplasm of sigmoid colon; K64.8 Other hemorrhoids; K57.30 Diverticulosis of large intestine without perforation or abscess without bleeding; I73.9 Peripheral vascular disease, unspecified; C61 Malignant neoplasm of prostate; D64.9 Anemia, unspecified; R01.1 Cardiac murmur, unspecified; Z98.62 Peripheral vascular angioplasty status; E78.2 Mixed hyperlipidemia; M54.30 Sciatica, unspecified side; J98.11 Atelectasis; R19.5 Other fecal abnormalities; F17.210 Nicotine dependence, cigarettes, uncomplicated; F10.90 Alcohol use, unspecified, uncomplicated; Z79.82 Long term (current) use of aspirin; Z79.01 Long term (current) use of anticoagulants; Z79.899 Other long term (current) drug therapy
CPT/HCPCS: 43255; 45385; 36415; 36430; 71045; 80048; 80053; 81003; 83735; 85014; 85018; 85025; 85027; 85610; 85730; 86850; 86900; 86901; 86923; 87081; 88305; 93005; 96374; 99285; A9270; C9113; G0378; J2001; J2704; J7030; J7050; J7120; P9016